=== PATIENT | female | born 1995 | race Caucasian/White ===

== ENCOUNTER → 2017-12-31 | Outpatient (REF) | payer OTHER ==
[2017-12-31 17:13] LABS: HEMATOCRIT 42.3 % (36.0-47.0); HEMOGLOBIN 14.6 g/dl (12.0-15.5); MEAN CORPUSCULAR HEMOGLOBIN 32.4 pg (27.0-33.0); MEAN CORPUSCULAR HGB CONC 34.5 g/dl (32.0-36.5); PLATELET COUNT, AUTOMATED 306 10^3/uL (150-450); RED CELL DISTRIBUTION WIDTH 11.7 % (11.5-14.5); WHITE BLOOD COUNT 9.3 10^3/uL (4.0-10.0)
[2017-12-31 17:50] LABS: HCG, SERUM QUANTITATIVE 38531 MIU/ML
[2018-01-01 09:20] LABS: HBsAg Prenatal NEGATIVE (NEGATIVE); RUBELLA IgG QUALITATIVE IMMUNE (IMMUNE)
[2018-01-01 09:47] LABS: HEPATITIS C VIRUS ABY INDEX 0.1 INDEX (<0.8)
[2018-01-01 11:07] LABS: HIV 1&2 SCREEN CENTAUR NEGATIVE (NEGATIVE)
== END ==
LOC: M LAB REF 16:37
DX: O36.80X0 Pregnancy with inconclusive fetal viability, not applicable or unspecified (principal)

== ENCOUNTER → 2018-03-03 | Outpatient (REF) | payer OTHER | LOC: M SFHCPLAZ 08:02 | DX: Z34.92 Encounter for supervision of normal pregnancy, unspecified, second trimester (principal) ==

== ENCOUNTER → 2018-03-05 | Outpatient (REF) | payer OTHER ==
[2018-03-08 16:17] LABS: QuantiFERON-TB Gold Plus Negative (Negative)
== END ==
LOC: M SFHCPLAZ 08:29
DX: Z36.89 Encounter for other specified antenatal screening (principal)
CPT/HCPCS: 36415

== ENCOUNTER → 2018-05-30 | Outpatient (CLI) | payer OTHER ==
[2018-05-30 10:04] LABS: HEMATOCRIT 37.4 % (36.0-47.0); MEAN CORPUSCULAR HEMOGLOBIN 33.1 pg (27.0-33.0); MEAN CORPUSCULAR HGB CONC 34.8 g/dl (32.0-36.5); MEAN CORPUSCULAR VOLUME 95.2 fl (80.0-96.0); PLATELET COUNT, AUTOMATED 211 10^3/uL (150-450); RED BLOOD COUNT 3.93 10^6/uL (4.00-5.40); WHITE BLOOD COUNT 9.6 10^3/uL (4.0-10.0)
== END ==
LOC: M LAB 09:14
PROVIDERS: ATTEND Obstetrics & Gynecology
DX: Z34.82 Encounter for supervision of other normal pregnancy, second trimester (principal)
CPT/HCPCS: 36415; 82950; 85027; 86850; 86901; J2790

== ENCOUNTER → 2018-06-05 | Outpatient (CLI) | payer OTHER | LOC: M LAB 07:44 | PROVIDERS: ATTEND Obstetrics & Gynecology | DX: O99.810 Abnormal glucose complicating pregnancy (principal) ==

== ENCOUNTER → 2018-07-29 | Outpatient (REF) | payer OTHER | LOC: M LAB REF 13:26 | PROVIDERS: ATTEND Nurse Practitioner Women's Health | DX: Z34.83 Encounter for supervision of other normal pregnancy, third trimester (principal); Z36.85 Encounter for antenatal screening for Streptococcus B ==

== ENCOUNTER 2018-08-19 15:33 | Inpatient (IN) | payer OTHER ==
[2018-08-19] VITALS (28 sets, daily range): BP systolic 75–133; BP diastolic 43–81
[~2018-08-19] VITALS: Ht 162.6 cm; Wt 78.3 kg
[2018-08-19] MEDS ORDERED: LR 800 ML IV SCH (16:00)
[2018-08-19] MEDS ORDERED: PRENTAB9 PO (16:24)
[2018-08-19] MEDS ORDERED: LR 800 ML IV ONE (16:25)
[2018-08-19 16:31] LABS: HEMATOCRIT 40.1 % (36.0-47.0); HEMOGLOBIN 14.2 g/dl (12.0-15.5); MEAN CORPUSCULAR HEMOGLOBIN 33.7 pg (27.0-33.0); MEAN CORPUSCULAR HGB CONC 35.4 g/dl (32.0-36.5); MEAN CORPUSCULAR VOLUME 95.2 fl (80.0-96.0); PLATELET COUNT, AUTOMATED 194 10^3/uL (150-450); RED BLOOD COUNT 4.21 10^6/uL (4.00-5.40); WHITE BLOOD COUNT 16.7 10^3/uL (4.0-10.0)
[2018-08-19] MEDS ORDERED: LR 1,000 ML IV SCH (17:00)
[2018-08-19] MEDS ORDERED: OXYTOCIN DRIP 30 UNITS in APPROPRIATE DILUENT 1 EA IV SCH (19:00)
[2018-08-19] MEDS ORDERED: FENTANYL 2MCG/ML ROPIVACAINE 0.2% IN 0.9% NACL 100ML IVBAG As Ordered ONE (19:09)
[2018-08-19] MEDS ORDERED: ePHEDrine SULFATE 25 MG/5 ML(5MG/ML) SYRINGE As Ordered ONE (20:35)
[2018-08-19] MEDS ORDERED: ONDANSETRON 4MG/2ML VIAL (J2405) IV PRN (20:45)
[2018-08-19] MEDS ORDERED: LACTATED RINGER'S 1000 ML IV PRN (20:45)
[2018-08-19] MEDS ORDERED: EPIDURAL/PCA KEYS XX PRN (20:45)
[2018-08-19] MEDS ORDERED: diphenhydrAMINE INJ 50MG/ML VIAL (J1200) IV PRN (20:45)
[2018-08-19] MEDS ORDERED: NALOXONE INJ 0.4 MG/1 ML VIAL (J2310) IV PRN (20:45)
[2018-08-19] MEDS ORDERED: REFRIGERATOR IV KEYS XX PRN (20:45)
[2018-08-19] MEDS ORDERED: ePHEDrine SULFATE 25 MG/5 ML(5MG/ML) SYRINGE IV PRN (20:45)
[2018-08-19] MEDS ORDERED: EPIDURAL COMMENT XX SCH (20:45)
[2018-08-19] MEDS ORDERED: FENTANYL/ROPIVACAINE/NACL BAG 100 ML EPIDURAL SCH (20:45)
[2018-08-20] VITALS (8 sets, daily range): BP systolic 100–124; BP diastolic 50–63
[2018-08-20] MEDS ORDERED: OXYTOCIN DRIP 30 UNITS in APPROPRIATE DILUENT 1 EA IV SCH (00:23)
[2018-08-20 00:30] LABS: CORD GAS ABE V -3.8; CORD GAS HCO3 V 22.8 MEQ/L; CORD GAS O2 SAT V 56.5 %; CORD GAS PCO2 V 46.5 mmHg; CORD GAS PH V 7.308 UNITS; CORD GAS PO2 V 24.6 mmHg; CORD GAS SBC V 20.3 MEQ/L; CORD GAS TCO2 V 24.2 MEQ/L
[2018-08-20] MEDS ORDERED: RHOGAM 300 MCG (1500 IU) INJ (J2790) IM SCH (00:30)
[2018-08-20] MEDS ORDERED: MEASLES,MUMPS,RUBELLA VACCINE INJ (MMR-II) (90707) SC SCH (00:30)
[2018-08-20] MEDS ORDERED: METHYLERGONOVINE MALEATE 0.2 MG TAB PO PRN (00:30)
[2018-08-20] MEDS ORDERED: MOM 30ML SUSPENSION UDC PO PRN (00:30)
[2018-08-20] MEDS ORDERED: ANUSOL HC CREAM 30GM TOP PRN (00:30)
[2018-08-20 00:33] LABS: CORD GAS ABE A -6.1; CORD GAS HCO3 A 21.1 MEQ/L; CORD GAS PCO2 A 48.1 mmHg; CORD GAS PH A 7.259 UNITS; CORD GAS PO2 A 21.3 mmHg; CORD GAS SBC A 18.3 MEQ/L; CORD GAS TCO2 A 22.5 MEQ/L
[2018-08-20] MEDS: ACETAMINOPHEN 500 MG TAB PO PRN ×3 (01:50→15:19)
[2018-08-20] MEDS: IBUPROFEN 800 MG TAB PO PRN ×3 (01:50→17:53)
[2018-08-20] MEDS: DIBUCAINE 1% OINTMENT 30GM TOP PRN (03:58)
--- NOTE | 2018-08-20 07:30 | HPE ---
DATE OF ADMISSION: 08/19/2018 This is a 22-year-old female 2, para 0-0-1-0 with an EDC of 08/25/2018, EGA 39-4/7 weeks gestation who presented to the office with complaints of contraction. Upon evaluation she was found to be in labor, at this point a decision was made for admission. Her record reviewed which was essentially unremarkable. She initiated care in her first trimester. Her blood type is A negative, rubella immune, hepatitis negative, HIV negative, GC and chlamydia negative, 1-hour sugar testing was within normal limits. Her GBS is negative. She did receive RhoGAM at 28 weeks. PAST MEDICAL HISTORY: Significant for anxiety, migraine. PAST SURGICAL HISTORY: Ailey tooth extraction. SOCIAL HISTORY: She is . Denies any alcohol, drug or cigarette smoking. REVIEW OF SYSTEMS: Unremarkable. FAMILY HISTORY: Significant for diabetes and migraine. PHYSICAL EXAMINATION: Normal-appearing female in no acute distress. Abdomen: Soft, nontender, nondistended. Extremities: No clubbing, cyanosis or edema. Vaginal exam: 5 cm, 80% fetus at zero station, vertex position. tracing reviewed category one tracing, contractions every 4 to 5 minutes. ASSESSMENT: Intrauterine at 39-4/7 weeks gestation in labor. GBS negative. PLAN: Admit to labor and delivery. Routine labs sent. Pain management discussed. The patient opted for an epidural. We will continue to monitor. Anticipate delivery.
--- NOTE | 2018-08-20 07:56 | DN ---
DATE OF DELIVERY: 08/19/2018 Maureen is a 22-year-old female 2, para 0-0-1-0, who was admitted at 39-4/7 weeks gestation in labor. She progressed to fully dilated after artificial rupture of membranes and Pitocin augmentation, pushed for less than an hour, delivered a live female in left occiput anterior position. score 9 and 9, birthweight is 8 pounds 13 ounces. Placenta delivered spontaneously intact. Three-vessel cord. Perineum, vagina and cervix inspected. First-degree midline perineal laceration noted which was repaired using 2-0 chromic. Estimated blood loss 300 mL. Both mother and baby in stable condition. Edited: [facility] 08/22/2018 1205 MTDD
[2018-08-20] MEDS: DOCUSATE SODIUM 100 MG CAP PO SCH ×2 (08:43→21:44)
[2018-08-20] MEDS: PRENATAL VITAMINS CHEWABLE TABLET PO SCH (08:43)
[2018-08-21] MEDS: ACETAMINOPHEN 500 MG TAB PO PRN ×2 (00:52→08:30)
[2018-08-21] MEDS: IBUPROFEN 800 MG TAB PO PRN ×2 (04:13→12:27)
[2018-08-21 05:36] VITALS: BP 119/80
[2018-08-21] MEDS: PRENATAL VITAMINS CHEWABLE TABLET PO SCH (08:29)
[2018-08-21] MEDS: DOCUSATE SODIUM 100 MG CAP PO SCH (08:30)
[2018-08-21] MEDS: DIBUCAINE 1% OINTMENT 30GM TOP PRN (08:30)
[2018-08-21] MEDS ORDERED: MAPA500T2 PO (09:59)
[2018-08-21] MEDS ORDERED: IBUP-1114 PO (09:59)
== END 2018-08-21 13:05 | disposition home or self-care (01) | DRG 807 ==
LOC: M LDI 15:33 → M OBS 08-20 03:14
PROVIDERS: ADMIT Obstetrics & Gynecology; ATTEND Obstetrics & Gynecology
PROC: 10E0XZZ Delivery of Products of Conception, External Approach (ICD-10-PCS; principal; 2018-08-19)
PROC: 0HQ9XZZ Repair Perineum Skin, External Approach (ICD-10-PCS; 2018-08-19)
DX: O70.0 First degree perineal laceration during delivery (principal); Z37.0 Single live birth; Z3A.39 39 weeks gestation of pregnancy

== ENCOUNTER 2018-08-30 20:25 | Emergency (ER) | payer OTHER ==
[~2018-08-30] VITALS: Ht 162.6 cm; Wt 67.3 kg
[~2018-08-30 20:25] MED LIST: IBUP-1114 PO; MAPA500T2 PO; PRENTAB9 PO
[2018-08-30 20:26] VITALS: BP 128/81
[2018-08-30] MEDS ORDERED: ACETAMINOPHEN TAB 650MG DOSE (2X325MG) PO ONE (21:30)
[2018-08-30 21:59] LABS: BASO % 0.6 % (0.0-1.0); EOS # 0.2 10^3/uL (0.0-0.50); HEMATOCRIT 42.2 % (36.0-47.0); HEMOGLOBIN 14.5 g/dl (12.0-15.5); LYMPH # 1.9 10^3/uL (1.5-6.5); MEAN CORPUSCULAR HGB CONC 34.4 g/dl (32.0-36.5); MEAN CORPUSCULAR VOLUME 99.1 fl (80.0-96.0); MONO # 0.5 10^3/uL (0.0-0.8); MONO % 8.2 % (0.0-5.0); NEUTROPHILS # 3.7 10^3/uL (1.8-7.7); PLATELET COUNT, AUTOMATED 384 10^3/uL (150-450); RED BLOOD COUNT 4.26 10^6/uL (4.00-5.40); WHITE BLOOD COUNT 6.3 10^3/uL (4.0-10.0)
[2018-08-30 22:17] LABS: BLOOD UREA NITROGEN 21 MG/DL (7-18); CALCIUM LEVEL 8.8 MG/DL (8.5-10.1); CARBON DIOXIDE LEVEL 27 MEQ/L (21-32); CHLORIDE LEVEL 109 MEQ/L (98-107); CREATININE FOR GFR 0.92 MG/DL (0.55-1.30); GLOMERULAR FILTRATION RATE > 60.0 (>60); GLUCOSE, FASTING 83 MG/DL (70-100); SODIUM LEVEL 144 MEQ/L (136-145)
[2018-08-30 22:49] LABS: GLUCOSE, URINE (UA) MANUAL NEGATIVE (NEGATIVE)
[2018-08-30 22:50] LABS: BILIRUBIN, URINE MANUAL NEGATIVE (NEGATIVE); KETONE, URINE MANUAL NEGATIVE (NEGATIVE); UROBILINOGEN, URINE MANUAL NORMAL (NORMAL)
[2018-08-30 22:57] LABS: BACTERIA, URINE SMALL AMOUNT; SQUAMOUS EPITHELIAL CELL URINE SMALL AMOUNT /hpf (SMALL AMT)
[2018-08-30 22:58] LABS: HYALINE CAST, URINE NONE SEEN /lpf (0-1)
--- NOTE | 2018-08-30 22:58 | REPVR ---
EXAM: US Pelvis Complete, Transabdominal EXAM DATE/TIME: 08/30/2018 10:05 PM CLINICAL HISTORY: 22 years old, female; Signs and symptoms; Other: Vaginal discharge; Additional info: Vaginal d/c S/P vaginal delivery on 08/19/18 TECHNIQUE: Imaging protocol: Real-time transabdominal pelvic ultrasound with image documentation. Complete exam. COMPARISON: No relevant prior studies available. FINDINGS: Uterus/cervix: The uterus measures 12.4 x 6.5 x 9.8 cm and is anteverted. There is mild fluid in the endometrial canal. There is no abnormal vascularity of the endometrium. Right adnexa: The right ovary measures 2.1 x 3.3 x 1.1 cm. There is normal color flow and spectral waveform of the right ovary. Left adnexa: The left ovary is not visualized. There is no left adnexal mass or fluid collection. Free fluid: None. IMPRESSION: 1. Enlarged uterus with mild fluid in the endometrial canal. 2. Normal right ovary. Left ovary not visualized. Electronically signed by: Nickie Stack On 08/30/2018 22:57:35 PM
[2018-08-30] MEDS ORDERED: MACR100C43 PO (23:41)
[2018-08-30] MEDS ORDERED: METR1GEL7 PV (23:43)
[2018-08-31] MEDS ORDERED: NITROFURANTOIN (MACROBID) 100 MG CAP PO ONE
[2018-08-31 00:24] LABS: CHLAMYDIA DNA AMPLIFICATION NEGATIVE (NEGATIVE); GC DNA AMPLIFICATION NEGATIVE (NEGATIVE)
== END 2018-08-31 00:04 | disposition home or self-care (01) ==
LOC: M ED 20:25
DX: N30.00 Acute cystitis without hematuria (principal); N89.8 Other specified noninflammatory disorders of vagina; N85.2 Hypertrophy of uterus; Z87.442 Personal history of urinary calculi; Z87.440 Personal history of urinary (tract) infections; Z86.19 Personal history of other infectious and parasitic diseases; Z79.899 Other long term (current) drug therapy; Z88.2 Allergy status to sulfonamides